=== PATIENT | female | born 1970 | race Caucasian/White ===

== ENCOUNTER 2016-08-09 10:22 | Emergency (ER) | payer BC ==
--- NOTE | 2016-08-09 10:41 | ER Document Report ---
ED Medical Screen (RME) - General Chief Complaint: Leg Swelling Stated Complaint: RIGHT LEG PAIN/SWOLLEN Time seen by provider: 10:38 Notes: Patient complains of right lower leg swelling for 2 weeks. Denies any history of DVT, but states she does have varicose veins. Denies long distance travel, or episodes of prolonged sitting. Denies redness or warmth to the area. Denies chest pain or shortness of breath. Denies injury. Patient is a nurse in the ICU, and currently works 12 hour shifts. I have greeted and performed a rapid initial assessment of this patient. A comprehensive ED assessment and evaluation of the patient, analysis of test results and completion of the medical decision making process will be conducted by additional ED providers. TRAVEL OUTSIDE OF THE [place] IN LAST 30 DAYS: No - Related Data Allergies/Adverse Reactions: No Known Allergies Allergy (Unverified 08/09/16 10:34) Physical Exam - Vital signs Vitals: Temp Pulse Resp BP Pulse Ox 98.3 F 78 16 141/73 H 97 08/09/16 10:26 08/09/16 10:08/09/16 10:26 08/09/16 10:26 08/09/16 10:26 - Extremities Notes: Patient is tender upper right calf extending to posterior right knee. . Course - Vital Signs Vital signs: Temp Pulse Resp BP Pulse Ox 98.3 F 78 16 141/73 H 97 08/09/16 10:26 08/09/16 10:26 08/09/16 10:26 08/09/16 10:26 08/09/16 10:26
[2016-08-09 11:06] LABS: ABSOLUTE EOSINOPHILS # (AUTO) 0.2 10^3/uL (0.0-0.6); ABSOLUTE LYMPHOCYTES (AUTO) 2.1 10^3/uL (0.5-4.7); ABSOLUTE MONOCYTES (AUTO) 0.4 10^3/uL (0.1-1.4); ABSOLUTE NEUT (AUTO) 3.9 10^3/uL (1.7-8.2); BASOPHILS % (AUTO) 0.3 % (0-2); EOSINOPHILS % (AUTO) 2.4 % (0-6); HEMATOCRIT 42.6 % (36.0-47.0); HEMOGLOBIN 14.4 g/dL (12.0-15.5); HGB HCT DIFFERENCE 0.6; LYMPHOCYTES % (AUTO) 32.1 % (13-45); MEAN CORPUSCULAR HEMOGLOBIN 30.9 pg (27.0-33.4); MEAN CORPUSCULAR HGB CONC 33.8 g/dL (32.0-36.0); MEAN CORPUSCULAR VOLUME 92 fl (80-97); MONOCYTES % (AUTO) 5.6 % (3-13); RED BLOOD COUNT 4.65 10^6/uL (3.72-5.28); RED CELL DISTRIBUTION WIDTH 12.8 % (11.5-14.0); SEGMENTED NEUTROPHILS % (AUTO) 59.6 % (42-78); WHITE BLOOD COUNT 6.5 10^3/uL (4.0-10.5)
[2016-08-09 11:25] LABS: ALANINE AMINOTRANSFERASE 43 U/L (9-52); ALBUMIN 4.5 g/dL (3.5-5.0); ALKALINE PHOSPHATASE 47 U/L (38-126); ANION GAP 9 (5-19); ASPARTATE AMINO TRANSFERASE 23 U/L (14-36); BILIRUBIN,TOTAL 0.9 mg/dL (0.2-1.3); BLOOD UREA NITROGEN 15 mg/dL (7-20); CALCIUM 10.1 mg/dL (8.4-10.2); CARBON DIOXIDE 25 mmol/L (22-30); CHLORIDE 107 mmol/L (98-107); CREATININE RESULT 0.66 mg/dL (0.52-1.25); GLUCOSE 97 mg/dL (75-110); POTASSIUM 4.5 mmol/L (3.6-5.0); SODIUM 141.3 mmol/L (137-145); TOTAL PROTEIN 7.1 g/dL (6.3-8.2)
--- NOTE | 2016-08-09 12:33 | ER Document Report ---
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 She states that she has had an aching pain in her right calf for the past 2 weeks. 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 No fevers or chills. No specific incident of trauma or injury. No skin redness. She otherwise feels well and does not have chest pain or shortness of breath. However she does state that she feels a bit anxious wondering about the possibility of DVT. She has no prior history of thromboembolic disease and does not know of a family history of such. TRAVEL OUTSIDE OF THE [place] IN LAST 30 DAYS: No - Related Data Allergies/Adverse Reactions: No Known Allergies Allergy (Unverified 08/09/16 10:34) Home Medications: Current Home Medications No Home Medications 08/09/16 [History] Past Medical History - General Information source: Patient - Social History Smoking Status: Current Every Day Smoker Frequency of alcohol use: Social Drug Abuse: None Family History: Reviewed & Not Pertinent Patient has suicidal ideation: No Patient has homicidal ideation: No - Past Medical History Cardiac Medical History: Reports: None Denies: Hx Hypertension Pulmonary Medical History: Reports: None Renal/ Medical History: Denies: Hx Peritoneal Dialysis Past Surgical History: Reports: Hx Section - 2, Hx Hysterectomy - Immunizations Hx Diphtheria, Pertussis, Tetanus Vaccination: Yes Review of Systems - Review of Systems Notes: REVIEW OF SYSTEMS: CONSTITUTIONAL : Denies fever, chills, or sweats. Denies recent illness. EENT: Denies eye, ear, throat, or mouth pain or symptoms. Denies nasal or sinus congestion. CARDIOVASCULAR: Denies chest pain. RESPIRATORY: Denies cough, cold, or chest congestion. Denies shortness of breath, difficulty breathing, or wheezing. GASTROINTESTINAL: Denies abdominal pain. Denies nausea, vomiting, or diarrhea. GENITOURINARY: Denies difficulty urinating, painful urination, burning, frequency, or blood in urine. MUSCULOSKELETAL: As per history of present illness SKIN: Denies rash or skin lesions. HEMATOLOGIC : Denies easy bruising or bleeding. LYMPHATIC: Denies swollen, enlarged glands. NEUROLOGICAL: Denies altered mental status or loss of consciousness. Denies headache. PSYCHIATRIC: As per history of present illness ALL OTHER SYSTEMS REVIEWED AND NEGATIVE. Physical Exam - Vital signs Vitals: Temp Pulse Resp BP Pulse Ox 98.3 F 78 16 141/73 H 97 08/09/16 10:26 08/09/16 10:26 08/09/16 10:26 08/09/16 10:26 08/09/16 10:26 - Notes Notes: PHYSICAL EXAMINATION: GENERAL: Well-appearing, well-nourished and in no acute distress. Pleasant and conversant HEAD: Atraumatic, normocephalic. EYES: Pupils equal round and reactive to light, extraocular movements intact, sclera anicteric, conjunctiva are normal. ENT: nares patent, oropharynx clear without exudates. Moist mucous membranes. NECK: Normal range of motion, supple without lymphadenopathy LUNGS: Breath sounds clear to auscultation bilaterally and equal. No wheezes rales or rhonchi. HEART: Regular rate and rhythm without murmurs ABDOMEN: Soft, nontender, normoactive bowel sounds. No guarding, no rebound. No masses appreciated. EXTREMITIES: Normal range of motion, no pitting or edema. Calves appear symmetric. Pulses intact. No erythema or warmth. There is right calf tenderness to palpation. No palpable cords. NEUROLOGICAL: Cranial nerves grossly intact. No gross focal motor or sensory deficits appreciated. PSYCH: Normal mood, normal affect. SKIN: Warm, Dry, normal turgor, no rashes or lesions noted. Course - Vital Signs Vital signs: Temp Pulse Resp BP Pulse Ox 98.3 F 80 20 118/76 97 08/09/16 13:17 08/09/16 13:17 08/09/16 13:17 08/09/16 13:17 08/09/16 13:17 - Laboratory Result Diagrams: 08/09/16 10:48 08/09/16 10:48 Laboratory results interpreted by me: D dimer 0.27 - Diagnostic Test Radiology reviewed: Reports reviewed - no evidence DVT Discharge - Discharge Clinical Impression: Right leg pain, Muscle strain Condition: Stable Disposition: HOME, SELF-CARE Additional Instructions: Muscle Strain You have strained a muscle -- torn the fibers within the muscle. This often occurs with strenuous exertion, or during an injury that suddenly stretches the muscle. The seriousness of a strain varies. Some strains heal within days, others cause problems for months. X-rays cannot show a muscle strain. X-rays are taken only if symptoms suggest that a fracture could be present. The usual treatment of a muscle strain is rest and ice packs. Sometimes, a sling, splint, or crutches may be necessary to rest the muscle. The muscle can be used again once pain subsides. Severe strains require a special exercise and stretching program to prevent permanent stiffness and disability. Your doctor will advise you if this will be necessary. Call the doctor immediately if pain or swelling becomes severe, or if numbness or discoloration develop. There is no evidence of DVT on your ultrasound and your blood work is reassuring. Continue supportive care for your calf muscle (rest, heat, NSAIDS) . Establish care with a primary care physician as discussed. Return to the ER for any worsening symptoms or concerns.
[2016-08-09 13:17] VITALS: BP 118/76
== END 2016-08-09 13:17 | disposition home or self-care (01) ==
LOC: ER 10:22
DX: S86.911A Strain of unspecified muscle(s) and tendon(s) at lower leg level, right leg, initial encounter (principal); M79.604 Pain in right leg; F17.200 Nicotine dependence, unspecified, uncomplicated; X58.XXXA Exposure to other specified factors, initial encounter; Z90.710 Acquired absence of both cervix and uterus
CPT/HCPCS: 36415; 80053; 85025; 85379; 93971; 99284

== ENCOUNTER 2017-08-28 11:52 | Emergency (ER) | payer BC ==
--- NOTE | 2017-08-28 13:10 | ER Document Report ---
ED General - General Chief Complaint: Abdominal Pain Stated Complaint: ABDOMINAL PAIN, CONSTIPATION Time Seen by Provider: 08/28/17 13:09 Notes: 46-year-old female patient to the emergency department complaining of a 10 day history of no bowel movements. Passing gas. Having worsening cramping in the right upper quadrant as well as right lower quadrant. Denies any medical problems. Began having some chills last night. Wanted to be seen the other day but was working in the emergency department and did not have time to check in. Today she is more concerned because continues to have no bowel movement and worsening pain in the right upper quadrant right lower quadrant. Has been taking [id number] medications for constipation but with no avail. Pain is crampy. Nonradiating and located mostly in the right upper quadrant and right lower quadrant. TRAVEL OUTSIDE OF THE [place] IN LAST 30 DAYS: No - HPI Onset: Yesterday Onset/Duration: Gradual - Related Data Allergies/Adverse Reactions: No Known Allergies Allergy (Unverified 08/09/16 10:34) Past Medical History - General Information source: Patient - Social History Smoking Status: Current Every Day Smoker Cigarette use (# per day): Yes Frequency of alcohol use: Social Drug Abuse: None Lives with: Family Family History: Reviewed & Not Pertinent Patient has suicidal ideation: No Patient has homicidal ideation: No - Past Medical History Cardiac Medical History: Denies: Hx Hypertension Renal/ Medical History: Denies: Hx Peritoneal Dialysis Past Surgical History: Reports: Hx Section - 2, Hx Hysterectomy - Immunizations Hx Diphtheria, Pertussis, Tetanus Vaccination: Yes Review of Systems - Review of Systems Constitutional: Chills, Fever EENT: No symptoms reported Cardiovascular: No symptoms reported Respiratory: No symptoms reported Gastrointestinal: Abdomen distended, Abdominal pain, Constipation. denies: Diarrhea, Nausea, Vomiting Genitourinary: denies: Dysuria, Discharge, Hematuria, Urgency Female Genitourinary: denies: , Vaginal discharge, Vaginal bleeding Musculoskeletal: No symptoms reported Skin: No symptoms reported Hematologic/Lymphatic: No symptoms reported Neurological/Psychological: No symptoms reported Physical Exam - Vital signs Vitals: Temp Pulse Resp BP Pulse Ox 98.5 F 81 18 124/61 97 08/28/17 12:12 08/28/17 12:12 08/28/17 12:12 08/28/17 12:12 08/28/17 12:12 Interpretation: Normal - General General appearance: Appears well, Alert - HEENT Head: Normocephalic, Atraumatic Eyes: Normal Pupils: PERRL - Respiratory Respiratory status: No respiratory distress Chest status: Nontender Breath sounds: Normal Chest palpation: Normal - Cardiovascular Rhythm: Regular Heart sounds: Normal auscultation Murmur: No - Abdominal Inspection: Normal Distension: No distension Bowel sounds: Normal Tenderness: Other - There is some mild right upper quadrant and right lower quadrant tenderness but no guarding or rebound. Organomegaly: No organomegaly - Back Back: Normal, Nontender - Extremities General upper extremity: Normal inspection, Nontender, Normal color, Normal ROM , Normal temperature General lower extremity: Normal inspection, Nontender, Normal color, Normal ROM , Normal temperature, Normal weight bearing. No: Jelena's sign - Neurological Neuro grossly intact: Yes Cognition: Normal Orientation: AAOx4 Pradip Coma Scale Eye Opening: Spontaneous Hagerman Coma Scale Verbal: Oriented Hagerman Coma Scale Motor: Obeys Commands Pradip Coma Scale Total: 15 Speech: Normal Motor strength normal: LUE, RUE, LLE, RLE Sensory: Normal - Psychological Associated symptoms: Normal affect, Normal mood - Skin Skin Temperature: Warm Skin Moisture: Dry Skin Color: Normal Course - Re-evaluation Re-evalutation: 08/28/17 13:44 At this time we will get basic labs, CT abdomen pelvis with oral and IV contrast , Reglan, fluids and reassess. 08/28/17 16:20 Laboratory 08/28/17 08/28/17 08/28/17 13:33 13:33 13:33 WBC 8.5 RBC 4.42 Hgb 13.8 Hct 41.1 MCV 93 MCH 31.3 MCHC 33.6 RDW 13.3 Plt Count 167 Seg Neutrophils % 62.9 Lymphocytes % 31.7 Monocytes % 3.5 Eosinophils % 1.4 Basophils % 0.5 Absolute Neutrophils 5.3 Absolute Lymphocytes 2.7 Absolute Monocytes 0.3 Absolute Eosinophils 0.1 Absolute Basophils 0.0 Sodium 140.6 Potassium 4.1 Chloride 107 Carbon Dioxide 25 Anion Gap 9 BUN 11 Creatinine 0.70 Est GFR ( Amer) > 60 Est GFR (Non-Af Amer) > 60 Glucose 93 Calcium 9.7 Total Bilirubin 0.4 Direct Bilirubin 0.3 Neonat Total Bilirubin Not Reportable Neonat Direct Bilirubin Not Reportable Neonat Indirect Bili Not Reportable AST 23 ALT 33 Alkaline Phosphatase 50 Total Protein 7.1 Albumin 4.4 Lipase 176.1 Urine Color COLORLESS Urine Appearance CLEAR Urine pH 7.0 Ur Specific [place] 1.003 Urine Protein NEGATIVE Urine Glucose (UA) NEGATIVE Urine Ketones NEGATIVE Urine Blood NEGATIVE Urine Nitrite NEGATIVE Urine Bilirubin NEGATIVE Urine Urobilinogen NEGATIVE Ur Leukocyte Esterase NEGATIVE Urine WBC (Auto) 0 Urine RBC (Auto) 0 Urine Bacteria (Auto) 1+ Squamous Epi Cells Auto <1 Urine Mucus (Auto) RARE Urine Ascorbic Acid NEGATIVE Abdomen/Pelvis CT 08/28/17 00:00 IMPRESSION: 1. Cholelithiasis. 2. The appendix is normal. 3. There is focal cortical scarring in the left kidney with a nonobstructing intrarenal calculus. 4. No ureteral calculus is seen on either side. 08/28/17 16:21 Labs, CT scan unremarkable. Will begin a bowel regimen at this time. Find nothing further at this time to do. Patient advised to return in 12-24 hours if symptoms are getting worse or for any other concerns. - Vital Signs Vital signs: Temp Pulse Resp BP Pulse Ox 98.5 F 81 18 124/61 97 08/28/17 12:12 08/28/17 12:12 08/28/17 12:12 08/28/17 12:12 08/28/17 12:12 - Laboratory Result Diagrams: 08/28/17 13:33 08/28/17 13:33 Discharge - Discharge Clinical Impression: Constipation Qualifiers: Constipation type: unspecified constipation type Qualified Code(s): K59.00 - Constipation, unspecified Abdominal pain Qualifiers: Abdominal location: unspecified location Qualified Code(s): R10.9 - Unspecified abdominal pain Disposition: HOME, SELF-CARE Instructions: Abdominal Pain ([facility]), Constipation ([facility]) Additional Instructions: In the event if symptoms are getting worse over the next 12-24 hours please return. Prescriptions: Lactulose 20 gm PO BID 5 Days #200 ml Metoclopramide HCl [Reglan 10 mg Tablet] 10 mg PO TID 10 Days #30 tablet Forms: Return to Work
[2017-08-28] MEDS ORDERED: METOCLOPRAMIDE HCL INJ/PF 10 MG/2 ML SDV IV ONE (13:11)
[2017-08-28] MEDS ORDERED: LACTULOSE SYRUP 20 GM/30 ML UDCUP PO ONE (13:11)
[2017-08-28] MEDS ORDERED: NORMAL SALINE 1000 ML 1,000 ML IV ONE (13:11)
[2017-08-28] MEDS ORDERED: DIPHENHYDRAMINE HCL 50 MG/ML VIAL IV ONE (13:11)
[2017-08-28 13:47] LABS: ABSOLUTE EOSINOPHILS # (AUTO) 0.1 10^3/uL (0.0-0.6); ABSOLUTE LYMPHOCYTES (AUTO) 2.7 10^3/uL (0.5-4.7); ABSOLUTE MONOCYTES (AUTO) 0.3 10^3/uL (0.1-1.4); ABSOLUTE NEUT (AUTO) 5.3 10^3/uL (1.7-8.2); BASOPHILS % (AUTO) 0.5 % (0-2); EOSINOPHILS % (AUTO) 1.4 % (0-6); HEMATOCRIT 41.1 % (36.0-47.0); HEMOGLOBIN 13.8 g/dL (12.0-15.5); LYMPHOCYTES % (AUTO) 31.7 % (13-45); MEAN CORPUSCULAR HEMOGLOBIN 31.3 pg (27.0-33.4); MEAN CORPUSCULAR HGB CONC 33.6 g/dL (32.0-36.0); MEAN CORPUSCULAR VOLUME 93 fl (80-97); MONOCYTES % (AUTO) 3.5 % (3-13); PLATELET COUNT 167 10^3/uL (150-450); RED BLOOD COUNT 4.42 10^6/uL (3.72-5.28); RED CELL DISTRIBUTION WIDTH 13.3 % (11.5-14.0); SEGMENTED NEUTROPHILS % (AUTO) 62.9 % (42-78); TOTAL CELLS COUNTED % (AUTO) 100 %; WHITE BLOOD COUNT 8.5 10^3/uL (4.0-10.5)
[2017-08-28 14:12] LABS: ALANINE AMINOTRANSFERASE 33 U/L (9-52); ALBUMIN 4.4 g/dL (3.5-5.0); ALKALINE PHOSPHATASE 50 U/L (38-126); ANION GAP 9 (5-19); ASPARTATE AMINO TRANSFERASE 23 U/L (14-36); BILIRUBIN,DIRECT 0.3 mg/dL (0.0-0.4); BILIRUBIN,TOTAL 0.4 mg/dL (0.2-1.3); BLOOD UREA NITROGEN 11 mg/dL (7-20); CALCIUM 9.7 mg/dL (8.4-10.2); CARBON DIOXIDE 25 mmol/L (22-30); CHLORIDE 107 mmol/L (98-107); GLUCOSE 93 mg/dL (75-110); LIPASE 176.1 U/L (23-300); POTASSIUM 4.1 mmol/L (3.6-5.0); SODIUM 140.6 mmol/L (137-145); TOTAL PROTEIN 7.1 g/dL (6.3-8.2)
[2017-08-28 14:58] LABS: APPEARANCE,URINE CLEAR; BILIRUBIN,URINE NEGATIVE (NEGATIVE); COLOR,URINE COLORLESS; GLUCOSE, URINE NEGATIVE (NEGATIVE); KETONES,URINE NEGATIVE (NEGATIVE); LEUKOCYTE ESTERASE,URINE NEGATIVE (NEGATIVE); NITRITE,URINE NEGATIVE (NEGATIVE); PROTEIN,URINE NEGATIVE (NEGATIVE); URINE SPECIFIC GRAVITY 1.003; UROBILINOGEN,URINE NEGATIVE mg/dL (<2.0)
--- NOTE | 2017-08-28 15:54 | RADIOLOGY REPORT (SQ) ---
EXAM DESCRIPTION: CT ABD/PELVIS WITH IV ORAL COMPLETED DATE/TIME: 08/28/2017 3:39 pm REASON FOR STUDY: RUQ/RLQ pain and constipation COMPARISON: 08/10/2014 TECHNIQUE: CT scan of the abdomen and pelvis performed using helical scanning technique with dynamic intravenous contrast injection. No oral contrast. Images reviewed with lung, soft tissue, and bone windows. Reconstructed coronal and sagittal MPR images reviewed. Delayed images for evaluation of the urinary system also acquired. All images stored on PACS. All CT scanners at this facility use dose modulation, iterative reconstruction, and/or weight based d osing when appropriate to reduce radiation dose to as low as reasonably achievable (ALARA). [facility]: Dose Right [facility]: CareDose [facility]: Dose Right [facility]: Teradose 4D [facility]: Soweso CONTRAST TYPE AND DOSE: contrast/concentration: Isovue 370.00 mg/ml; Total Contrast Delivered: 100.0 ml; Total Saline Delivered: 50.0 ml RENAL FUNCTION: BUN 11 creatinine 0.7 RADIATION DOSE: CT Rad equipment meets quality standard of care and radiation dose reduction techniq ues were employed. CTDIvol: 19.0 - 20.7 mGy. DLP: 2264 mGy-cm.. LIMITATIONS: None. FINDINGS: LOWER CHEST: No significant findings. No nodules or infiltrates. LIVER: Normal size. No masses. No dilated ducts. SPLEEN: Normal size. No focal lesions. PANCREAS: No masses. No significant calcifications. No adjacent inflammation or peripancreatic fluid collections. Pancreatic duct not dilated. GALLBLADDER: A single gallstone is seen. There is no ductal dilatation. ADRENAL GLANDS: No significant masses or asymmetry. RIGHT KIDNEY AND URETER: No solid masses. No significant calcifications. No hydronephrosis or hyd roureter. LEFT KIDNEY AND URETER: There is focal cortical scarring with nonobstructing intrarenal calculus. No solid masses are seen. There is no hydronephrosis or hydroureter. AORTA AND VESSELS: No aneurysm. No dissection. Renal arteries, SMA, celiac without stenosis. RETROPERITONEUM: No retroperitoneal adenopathy, hemorrhage or masses. BOWEL AND PERITONEAL CAVITY: No masses or inflammatory changes. No free fluid or peritoneal masses. APPENDIX: Normal. PELVIS: The urinary bladder is distended. No pelvic mass is seen. No abnormal fluid collections are present. ABDOMINAL WALL: No masses. No hernias. BONES: No significant or acute findings. OTHER: No other significant finding. IMPRESSION: 1. Cholelithiasis. 2. The appendix is normal. 3. There is focal cortical scarring in the left kidney with a nonobstructing intrarenal calculus. 4. No ureteral calculus is seen on either side. TECHNICAL DOCUMENTATION: JOB ID: [id number] Quality ID # [id number]: Final reports with documentation of one or more dose reduction techniques (e.g., Au tomated exposure control, adjustment of the mA and/or kV according to patient size, use of iterative reconstruction technique) 2010 [employer]- All Rights Reserved Reading location - IP/workstation name: [email or web address]
[2017-08-28 16:56] VITALS: BP 124/72
== END 2017-08-28 16:54 | disposition home or self-care (01) ==
LOC: ER 11:52
DX: K59.00 Constipation, unspecified (principal); N20.0 Calculus of kidney; R10.11 Right upper quadrant pain; R10.32 Left lower quadrant pain; R68.83 Chills (without fever); F17.210 Nicotine dependence, cigarettes, uncomplicated
CPT/HCPCS: 99284; 96361; 96374; 96375; 36415; 83690; 85025; 80053; 81001; 74177; J1200; J2765; J7030

== ENCOUNTER → 2018-04-18 | Outpatient (CLI) | payer BC ==
--- NOTE | 2018-04-18 12:00 | RADIOLOGY REPORT (SQ) ---
EXAM DESCRIPTION: CHEST 2 VIEWS COMPLETED DATE/TIME: 04/18/2018 9:33 am REASON FOR STUDY: SHORTNESS OF BREATH COMPARISON: None. EXAM PARAMETERS: NUMBER OF VIEWS: two views TECHNIQUE: Digital Frontal and Lateral radiographic views of the chest acquired. RADIATION DOSE: NA LIMITATIONS: none FINDINGS: LUNGS AND PLEURA: No opacities, masses or pneumothorax. No pleural effusion. MEDIASTINUM AND HILAR STRUCTURES: No masses or contour abnormalities. HEART AND VASCULAR STRUCTURES: Heart normal size. No evidence for failure. BONES: No acute findings. HARDWARE: None in the chest. OTHER: No other significant finding. IMPRESSION: NO ACUTE RADIOGRAPHIC FINDING IN THE CHEST. TECHNICAL DOCUMENTATION: JOB ID: [id number] [employer]- All Rights Reserved Reading location - IP/workstation name: [email or web address]
== END ==
LOC: RAD 09:22
PROVIDERS: ATTEND Internal Medicine Pulmonary Disease
DX: R06.02 Shortness of breath (principal)
CPT/HCPCS: 71046

== ENCOUNTER 2018-12-02 15:05 | Emergency (ER) | payer BC ==
[2018-12-02] MEDS ORDERED: FAMOTIDINE INJ/PF 20 MG/2 ML SDV IV ONE (15:16)
[2018-12-02 16:50] VITALS: BP 128/62
--- NOTE | 2018-12-02 22:37 | ER Document Report ---
Entered by ZABRINA REBOLLAR SCRIBE 12/02/18 1613 Acting as scribe for:MADY SANDS MD ED Allergic Reaction - General Chief Complaint: Allergy Symptoms Stated Complaint: POSSIBLE ALLERGIC REACTION Time Seen by Provider: 12/02/18 15:12 Primary Care Provider: SCOTTY MALDONADO MD [COMMUNITY BASED STAFF] - Follow up as needed Information source: Patient Notes: Patient is a 48-year-old female presenting to the emergency department with an allergic reaction to penicillin. patient states that she got home today and she took 1 g of penicillin at about 1400. Patient states that at about 1415 she began having an allergic reaction. Patient states that she felt as if she was going to faint, her heart was pounding, she was nauseous, experienced lack of vision. Patient states that she began shaking mainly in her hands and feet, after she began shaking she took 50 mg of Benadryl. Patient states that she also experienced throat swelling. TRAVEL OUTSIDE OF THE [place] IN LAST 30 DAYS: No - Related Data Allergies/Adverse Reactions: Penicillins Allergy (Verified 12/02/18 15:26) Past Medical History - General Information source: Patient - Social History Smoking Status: Current Every Day Smoker Cigarette use (# per day): Yes Chew tobacco use (# tins/day): No Frequency of alcohol use: Social Drug Abuse: None Family History: Reviewed & Not Pertinent Past Surgical History: Reports: Hx Section - 2, Hx Hysterectomy - Immunizations Hx Diphtheria, Pertussis, Tetanus Vaccination: Yes Review of Systems - Review of Systems Constitutional: No symptoms reported EENT: No symptoms reported Cardiovascular: No symptoms reported Respiratory: No symptoms reported Gastrointestinal: No symptoms reported Genitourinary: No symptoms reported Female Genitourinary: No symptoms reported Musculoskeletal: No symptoms reported Skin: No symptoms reported Hematologic/Lymphatic: No symptoms reported Neurological/Psychological: No symptoms reported -: Yes All other systems reviewed and negative Physical Exam - Vital signs Vitals: Pulse Ox 93 12/02/18 15:20 - Notes Notes: Physical Exam: General: Alert, anxious. HEENT: Normocephalic. Atraumatic. PERRL. Extraocular movements intact. Oropharynx clear. Neck: Supple. Non-tender. Respiratory: Erythema present in the throat. No swelling. Soft palate, and uvula. No respiratory distress. Clear and equal breath sounds bilaterally. Chest: No benitez lines present. Cardiovascular: Regular rate and rhythm. Abdominal: Normal Inspection. Non-tender. No distension. Normal Bowel Sounds. Back: Non-tender. No deformity or step off. Extremities: Moves all four extremities. Upper extremities: Normal inspection. Normal ROM. Lower extremities: Normal inspection. No edema. Normal ROM. Neurological: Normal cognition. AAOx4. Normal speech. Psychological: Normal affect. Normal Mood. Skin: Warm. Dry. Normal color. Course - Vital Signs Vital signs: Temp Pulse Resp BP Pulse Ox 97.9 F 18 143/74 H 93 12/02/18 15:28 12/02/18 15:22 12/02/18 15:22 12/02/18 15:22 Discharge - Discharge Clinical Impression: Acute allergic reaction Qualifiers: Encounter type: initial encounter Qualified Code(s): T78.40XA - Allergy, unspecified, initial encounter Condition: Stable Disposition: HOME, SELF-CARE Additional Instructions: Acute Allergic Reaction to Drugs Your symptoms are due to an allergic reaction. The physician feels that a medication you've taken is responsible. Medication allergy can cause hives, swelling of the hands, feet and face, hoarseness, and difficulty swallowing or breathing. This type of allergy can also be caused by animal dander, foods, infection, or insect bites. Medication can cause allergy even when prior use of this same medication caused no problems. Emergency treatment may include adrenalin and antihistamines. Home treatment includes the following: (1) Stop the suspected medication. (2) take Zantac 300 mg every 4-6 hours for the next 12 hours, continue tomorrow if you have additional itching. Take oral antihistamines for the next four to five days (Benadryl, Atarax) if needed for itching. (3) Avoid aspirin until the hives completely disappear. (4) Avoid hot baths or showers until the hives are completely gone. Call the doctor if faintness, difficulty swallowing, tightness in the chest or wheezing occurs. RETURN TO THE EMERGENCY ROOM IF ANY NEW OR WORSENING SYMPTOMS. Referrals: SCOTTY MALDONADO MD [COMMUNITY BASED STAFF] - Follow up as needed Scribe Attestation: 12/02/18 16:15 I personally performed the services described in the documentation, reviewed and edited the documentation which was dictated to the scribe in my presence, and it accurately records my words and actions. I personally performed the services described in the documentation, reviewed and edited the documentation which was dictated to the scribe in my presence, and it accurately records my words and actions.
== END 2018-12-02 16:50 | disposition home or self-care (01) ==
LOC: ER 15:05
DX: T78.40XA Allergy, unspecified, initial encounter (principal); R25.1 Tremor, unspecified; F17.210 Nicotine dependence, cigarettes, uncomplicated
CPT/HCPCS: 99283; 96374; S0028

== ENCOUNTER → 2019-11-26 | Outpatient (CLI) | payer BC ==
[2019-11-26 23:12] LABS: ABSOLUTE EOSINOPHILS # (AUTO) 0.2 10^3/uL (0.0-0.6); ABSOLUTE LYMPHOCYTES (AUTO) 2.9 10^3/uL (0.5-4.7); ABSOLUTE MONOCYTES (AUTO) 0.4 10^3/uL (0.1-1.4); BASOPHILS % (AUTO) 0.4 % (0-2); EOSINOPHILS % (AUTO) 1.9 % (0-6); HEMATOCRIT 38.8 % (36.0-47.0); HEMOGLOBIN 13.9 g/dL (12.0-15.5); LYMPHOCYTES % (AUTO) 34.3 % (13-45); MEAN CORPUSCULAR HEMOGLOBIN 33.1 pg (27.0-33.4); MEAN CORPUSCULAR HGB CONC 35.9 g/dL (32.0-36.0); MEAN CORPUSCULAR VOLUME 92 fl (80-97); MONOCYTES % (AUTO) 5.2 % (3-13); PLATELET COUNT 195 10^3/uL (150-450); RED BLOOD COUNT 4.21 10^6/uL (3.72-5.28); RED CELL DISTRIBUTION WIDTH 13.4 % (11.5-14.0); SEGMENTED NEUTROPHILS % (AUTO) 58.2 % (42-78); TOTAL CELLS COUNTED % (AUTO) 100 %; WHITE BLOOD COUNT 8.6 10^3/uL (4.0-10.5)
[2019-11-26 23:27] LABS: ALBUMIN 4.4 g/dL (3.5-5.0); ALKALINE PHOSPHATASE 62 U/L (38-126); ANION GAP 6 (5-19); ASPARTATE AMINO TRANSFERASE 22 U/L (14-36); BILIRUBIN,TOTAL 0.3 mg/dL (0.2-1.3); BLOOD UREA NITROGEN 14 mg/dL (7-20); CALCIUM 9.6 mg/dL (8.4-10.2); CARBON DIOXIDE 24 mmol/L (22-30); CHLORIDE 105 mmol/L (98-107); CHOLESTEROL 229.63 mg/dL (0-200); GLUCOSE 107 mg/dL (75-110); POTASSIUM 4.3 mmol/L (3.6-5.0); TOTAL PROTEIN 7.1 g/dL (6.3-8.2); TRIGLYCERIDES 255 mg/dL (<150)
[2019-11-26 23:39] LABS: DIRECT LDL 135 mg/dL (<100)
== END ==
LOC: LAB 22:57
PROVIDERS: ATTEND Psychiatry & Neurology Psychiatry
DX: F33.1 Major depressive disorder, recurrent, moderate (principal); Z79.899 Other long term (current) drug therapy
CPT/HCPCS: 36415; 80053; 80061; 84443; 85025